=== PATIENT | male | born 1945 | race Hispanic/Latino ===

== ENCOUNTER 2017-11-19 12:09 | Inpatient (IN) | payer MEDICARE ==
[~2017-11-19] VITALS: Ht 172.7 cm; Wt 63.0 kg
[2017-11-19] MEDS ORDERED: LOSARTAN POTASS25 MG PO (12:44)
[2017-11-19] MEDS ORDERED: TACROLIMUS1 MG PO (12:44)
[2017-11-19] MEDS ORDERED: GLIPIZIDE5 MG PO (12:44)
[2017-11-19] MEDS ORDERED: CRESTOR10 MG PO (12:44)
[2017-11-19] MEDS ORDERED: CYMBALTA30 MG PO (12:44)
[2017-11-19] MEDS ORDERED: JANUVIA100 MG PO (12:44)
[2017-11-19] MEDS ORDERED: FAMOTIDINE20 MG PO (12:44)
[2017-11-19] MEDS ORDERED: MYCOPHENOLIC PO (12:44)
[2017-11-19] MEDS ORDERED: ACETAMINOPHEN 325 MG TAB PO STA (12:45)
[2017-11-19] MEDS ORDERED: SODIUM CHLORIDE 0.9% 1000ML 1,000 ML IV STA (12:45)
--- NOTE | 2017-11-19 13:38 | Diagnostic Imaging Report ---
ADDENDUM #1 Dose modulation, iterative reconstruction, and/or weight based adjustment of the mA/kV was utilized to reduce the radiation dose to as low as reasonably achievable. Signed by: Dr. Mercy Carias M.D. on 11/26/2017 10:00 AM ORIGINAL REPORT EXAMINATION: Head CT without contrast HISTORY: Headache, dizziness, evaluate for intracranial bleed or tumor. COMPARISON: None. TECHNIQUE: Multidetector axial images were obtained without contrast from the foramen magnum to the vertex . The images were reconstructed using brain and bone algorithms. Thin section brain images were reformatted into coronal and sagittal planes. Image quality: Motion/streaking artifact limits the evaluation of the skull base and posterior cranial fossa. FINDINGS: Parenchyma: 1. Moderate confluent periventricular and aragon radiata white matter hypodensities, most likely nonspecific chronic microvascular ischemic changes. 2. Age indeterminate likely chronic lacunar infarcts in the left frontal deep white matter, bilateral lentiform nuclei, bilateral medial thalami and possibly within the shailesh. 3. No mass or hemorrhage. No CT evidence of acute territorial vascular insult. Extra-axial spaces: No abnormal density. No extra-axial fluid collections Brain volume: Mild generalized brain volume loss, psychomotor retrospective for patient's age. Ventricles: No hydrocephalus or displacement. Arteries: No density suggestive of thrombus. Dural sinuses: No abnormal density. Extra-axial spaces: No abnormal density. Foramen magnum: No mass, Chiari malformation, or basilar invagination. Sella: No obvious mass. Paranasal/mastoid sinuses: Imaged portions unremarkable. Skull/Scalp: No lytic or blastic lesions. No fractures. IMPRESSION: 1. No intracranial mass or hemorrhage. 2. Moderate confluent chronic microvascular ischemic changes. 3. Multiple age indeterminate likely chronic small lacunar infarct as detailed above. Signed by: Dr. Mercy Carias M.D. on 11/19/2017 1:35 PM
[2017-11-19 14:30] LABS: BASOPHILS % 0.2 % (0.0-1.0); EOSINOPHILS % 0.2 % (0.0-6.0); HEMATOCRIT 28.6 % (38.2-49.6); HEMOGLOBIN 9.5 g/dL (14.0-18.0); LYMPHOCYTES # (AUTO) 0.3 (1.0-3.2); LYMPHOCYTES % 3.4 % (18.0-39.1); MEAN CORPUSCULAR HEMOGLOBIN 27.8 pg (28-32); MEAN CORPUSCULAR HGB CONC 33.2 g/dL (31-35); MEAN CORPUSCULAR VOLUME 83.6 fL (81-99); MONOCYTES # (AUTO) 0.8 (0.2-0.8); MONOCYTES % 8.8 % (4.4-11.3); NEUTROPHILS # (AUTO) 8.1 (2.1-6.9); NEUTROPHILS % 86.3 % (38.7-80.0); RED BLOOD COUNT 3.42 x10e6/uL (4.3-5.7); RED CELL DISTRIBUTION WIDTH 14.8 % (11.7-14.4)
[2017-11-19 14:31] LABS: PLATELET COUNT 98 x10e3/uL (140-360)
[2017-11-19 14:45] LABS: ALBUMIN 3.2 g/dL (3.5-5.0); ALBUMIN/GLOBULIN RATIO 0.8 (0.8-2.0); ANION GAP 16.4 mmol/L (8-16); CALCIUM 9.8 mg/dL (8.4-10.2); CREATININE, SERUM 2.34 mg/dL (0.72-1.25)
[2017-11-19 14:49] LABS: POTASSIUM 2.4 mmol/L (3.5-5.1)
[2017-11-19 14:52] LABS: CREATINE KINASE MB 1.9 ng/mL (0-5.0)
[2017-11-19] MEDS ORDERED: POTASSIUM CHLORIDE 20 MEQ TAB CR PO STA (14:55)
[2017-11-19 14:57] LABS: BILIRUBIN,URINE NEGATIVE (NEGATIVE); CLARITY,URINE HAZY (CLEAR); COLOR,URINE YELLOW (YELLOW); KETONES,URINE NEGATIVE (NEGATIVE); LEUKOCYTE ESTERASE ,URINE 2+ (NEGATIVE); NITRITE,URINE NEGATIVE (NEGATIVE); PROTEIN,URINE DIPSTICK 2+ (NEGATIVE); URINE UROBILINOGEN 0.2 mg/dL (0.2 - 1)
[2017-11-19] MEDS ORDERED: VANCOMYCIN 1GM/NS 250 ML 250 ML IV ONE (15:00)
[2017-11-19] MEDS ORDERED: LIDOCAINE HCL 1% LOCAL INJ 20 ML VIAL INJ ONE (15:00)
[2017-11-19] MEDS ORDERED: CEFTRIAXONE SOD 1 GM VIAL IV ONE (15:00)
[2017-11-19 15:09] LABS: WBC,URINE (MAN) >50 /HPF (0-5)
[2017-11-19 15:10] LABS: BACTERIA,URINE MODERATE /HPF; MUCUS,URINE FEW (RARE)
[2017-11-19] MEDS ORDERED: ZOLPIDEM TARTRATE 5 MG TAB PO PRN (15:45)
[2017-11-19] MEDS ORDERED: ONDANSETRON HCL INJ 2 MG/ML VIAL IV PRN (15:45)
[2017-11-19] MEDS ORDERED: MORPHINE SULFATE 2 MG/ML SYR IV PRN (15:45)
[2017-11-19] MEDS ORDERED: DIPHENHYDRAMINE HCL 25 MG CAP PO PRN (15:45)
[2017-11-19] MEDS ORDERED: ACETAMINOPHEN 325 MG TAB PO PRN (15:45)
[2017-11-19] MEDS ORDERED: PROMETHAZINE 12.5MG/ NACL 0.9% 12.5 MG/50 ML BAG IV PRN (15:45)
--- NOTE | 2017-11-19 15:48 | Diagnostic Imaging Report ---
PROCEDURE: A single AP view of the chest. COMPARISON: None. INDICATIONS: NECK PAIN FINDINGS: Lines/tubes: None. Lungs: The lungs are well inflated and clear. There is no evidence of pneumonia or pulmonary edema. Pleura: There is no pleural effusion or pneumothorax. Heart and mediastinum: The heart and the mediastinum are unremarkable. Bones: No acute bony abnormality. IMPRESSION: 1. No acute cardiopulmonary disease. Dictated by: Flavio Dove M.D. on 11/19/2017 at 15:54 Electronically approved by: Flavio Dove M.D. on 11/19/2017 at 15:54
[2017-11-19 16:17] LABS: TOTAL PROTEIN,CSF 40.9 mg/dL (15-40)
[2017-11-19 16:45] LABS: APPEARANCE,CSF CLEAR (CLEAR); COLOR,CSF COLORLESS (COLORLESS); TUBE NUMBER 4
[2017-11-19 16:46] LABS: WHITE BLOOD CELL,CSF 1 cells/uL (0-5)
[2017-11-19] MEDS ORDERED: ENOXAPARIN SOD INJ 40 MG/0.4 ML SYR SC SCH (17:00)
[2017-11-19] MEDS: ENOXAPARIN 30 MG/0.3 ML SYR SC SCH (17:00)
[2017-11-19 17:50] VITALS: BP 189/94
[2017-11-19] MEDS ORDERED: DEXTROSE 50% SYRINGE 50 ML IV PRN (19:30)
[2017-11-19 20:00] VITALS: BP 117/63
[2017-11-19 20:30] VITALS: BP 130/72
[2017-11-19] MEDS ORDERED: CEFTRIAXONE SOD 1 GM VIAL IV SCH (21:00)
[2017-11-19] MEDS: FAMOTIDINE 20 MG TAB PO SCH (22:07)
[2017-11-19] MEDS: INSULIN LISPRO 100 UNIT/1 ML 3ML VIAL SQ SCH (22:08)
[2017-11-19] MEDS: SIMVASTATIN 40 MG TAB PO SCH (22:08)
[2017-11-19] MEDS: SODIUM CHLORIDE 0.9% 1000ML 1,000 ML IV SCH (22:16)
[2017-11-19 23:05] VITALS: BP 140/72
[2017-11-20] VITALS (7 sets, daily range): BP systolic 117–177; BP diastolic 61–87
[2017-11-20 06:02] LABS: BASOPHILS % 0.3 % (0.0-1.0); EOSINOPHILS % 0.6 % (0.0-6.0); HEMATOCRIT 26.5 % (38.2-49.6); HEMOGLOBIN 8.9 g/dL (14.0-18.0); LYMPHOCYTES # (AUTO) 0.4 (1.0-3.2); LYMPHOCYTES % 5.7 % (18.0-39.1); MEAN CORPUSCULAR HGB CONC 33.6 g/dL (31-35); MEAN CORPUSCULAR VOLUME 83.3 fL (81-99); MONOCYTES # (AUTO) 0.7 (0.2-0.8); MONOCYTES % 10.5 % (4.4-11.3); NEUTROPHILS # (AUTO) 5.8 (2.1-6.9); NEUTROPHILS % 82.2 % (38.7-80.0); PLATELET COUNT 90 x10e3/uL (140-360); RED BLOOD COUNT 3.18 x10e6/uL (4.3-5.7); RED CELL DISTRIBUTION WIDTH 14.8 % (11.7-14.4)
[2017-11-20 06:28] LABS: ANION GAP 13.3 mmol/L (8-16); CREATININE, SERUM 2.07 mg/dL (0.72-1.25)
[2017-11-20 06:36] LABS: POTASSIUM 2.3 mmol/L (3.5-5.1)
[2017-11-20] MEDS ORDERED: POTASSIUM CHLORIDE 20MEQ/100ML 100 ML IV ONE ×3 (07:30→15:00)
[2017-11-20] MEDS ORDERED: SODIUM CHLORIDE 0.9% 50ML 50 ML ONE (07:54)
[2017-11-20] MEDS: SODIUM CHLORIDE 0.9% 1000ML 1,000 ML IV SCH (08:32)
[2017-11-20] MEDS: FAMOTIDINE 20 MG TAB PO SCH ×2 (08:32→16:17)
[2017-11-20] MEDS: INSULIN LISPRO 100 UNIT/1 ML 3ML VIAL SQ SCH ×4 (08:33→21:11)
[2017-11-20] MEDS: DULOXETINE HCL 30 MG DELAYED RELEASE PO SCH (08:33)
[2017-11-20] MEDS: LOSARTAN POTASSIUM 25 MG TAB PO SCH (08:33)
[2017-11-20] MEDS: SITAGLIPTIN 100 MG TAB PO SCH (08:33)
[2017-11-20] MEDS: GLIPIZIDE 5 MG TAB PO SCH (08:33)
[2017-11-20] MEDS: TACROLIMUS 1 MG CAP PO SCH (08:33)
[2017-11-20] MEDS ORDERED: FAMOTIDINE 20 MG TAB PO SCH (09:00)
[2017-11-20] MEDS: MYCOPHENOLIC 360 MG PO SCH ×2 (09:00→16:17)
[2017-11-20] MEDS ORDERED: MYCOPHENOLIC 360 MG PO SCH (09:00)
[2017-11-20] MEDS ORDERED: FUROSEMIDE INJ 10 MG/ML 2 ML VIAL IV NR (10:00)
--- NOTE | 2017-11-20 10:45 | Consultation ---
DATE OF CONSULTATION: November 20, 2017 RENAL CONSULTATION Thank you for the consultation Mr. Zhou is a pleasant well known 72-year-old male patient of mine with past medical history significant for end-stage renal disease. He is status post cadaveric renal transplant back in January of 2014 in [place]. He moved over the last year or so to [place] to establish care to follow his kidney transplant, which has been stable with his creatinine around 2.07 or 2.1 mg/dL. The patient has been followed in our office. He has also seen Dr. Thao at the [facility] transplant clinic. His cadaveric renal transplant has been stable. The patient has also maintained Prograf levels with the level being 10 on the lower side now since he is stable with his transplant. He is currently on 2 mg daily of Prograf and also mycophenolic acid. Currently, no fever, chills, nausea, vomiting, or diarrhea. Came in yesterday with some altered mental status. Was admitted to evaluate for infection. Also, is hypokalemic. Has been given IV potassium and oral potassium will be given this evening. He received IV fluids overnight, but appears on the fluid positive side now. No chest pain. No difficulty breathing at this time. PAST MEDICAL HISTORY: Cadaveric renal transplant, history of hypertension, history of diabetes mellitus, history of end-stage renal disease. He is status post cadaveric renal transplant back in 2013. ALLERGIES: NO KNOWN DRUG ALLERGIES. SOCIAL HISTORY: No tobacco. No alcohol use. FAMILY HISTORY: Noncontributory. REVIEW OF SYSTEMS: As per HPI. Otherwise, all systems negative. MEDICATIONS: That he takes: 1. Losartan 50 mg daily. 2. He is on simvastatin. 3. He is on Januvia. 4. He is on tacrolimus 2 mg daily. 5. He is on mycophenolic acid 360 mg twice a day. 6. He is currently also getting Rocephin. PHYSICAL EXAMINATION VITAL SIGNS: Blood pressure 133/66, pulse 63, afebrile. HEENT: No cervical lymphadenopathy. NECK: Supple without masses. No obvious JVD. Moist appearing oral mucosa. SKIN: Moist with good skin turgor. CHEST: Good expansion. No chest wall tenderness. Lungs are clear to auscultation bilaterally with basal crackles. CARDIOVASCULAR: S1 and S2. No obvious gallop or murmur. ABDOMEN: Soft. Positive bowel sounds. Nontender. No organomegaly. No tenderness over his allograft. EXTREMITIES: No obvious lower extremity edema. No clubbing. No cyanosis. NEUROLOGIC: Awake, alert and oriented times 3. Grossly nonfocal exam. LABORATORY WORKUP: So far, sodium is 132, potassium 2.3, chloride 98, carb 23, BUN 25, creatinine 2.07. Calcium is 9. The patient also had a CBC done with 7 white cell count, 8.9 hemoglobin, hematocrit 26.5, and platelet count is 90,000. IMPRESSION AND PLAN 1. Stable chronic kidney disease, stage 3: Status post cadaveric renal transplant. Stable allograft function. Continue current doses of both tacrolimus and mycophenolic acid. Will check a tacrolimus level in the morning, and make further recommendations. The patient appears slightly on the fluid overload side. Will discontinue the IV fluids. Will repeat labs in the morning, including basic metabolic panel, mag, phos, CBC, as well as tacrolimus level. Will also decrease the Rocephin dose to 1 g IV q.12 h. based on his creatinine clearance. 2. Hypertension: Continue current medications. 3. Hypokalemia: Replace with 60 mEq intravenously and 40 mg is also going to be given later today. Recheck level in the morning, and also check a magnesium level. Will continue to replace as necessary. 4. Hyponatremia: Feel secondary to positive fluid balance. Discontinue maintenance intravenous fluids. Will give one dose of Lasix also, 20 mg times one. 5. Altered mental status: The patient's overall mental status is much better. Infectious disease will be seeing the patient to evaluate for possibility of infection. Thank you once again for the consult. Will follow up the patient closely with you and make further recommendations. Job#: [id number] RI cc:JACOB GANNON MD
--- NOTE | 2017-11-20 15:35 | Diagnostic Imaging Report ---
EXAMINATION: MRI of the cervical spine without contrast HISTORY: Neck and head pain for the last 3 days, meningitis, renal failure, frequent falls COMPARISON: None available TECHNIQUE: Sagittal T1, T2, STIR; axial T2, gradient echo. Image quality: Motion artifact limits evaluation of most of the sequences. FINDINGS: Curvature: Mild alignment of the spino-laminar line at C6-C7 with minimal interspinous processes subluxation and buckling of the ligamenta flava, correlate clinically with possible recent trauma. Spinal canal: Questionable dorsal epidural heterogeneous signal intensity which may correspond to artifact versus organizing fluid collection at C5-C6, best seen on the sagittal T2, motion artifact limits evaluation in the remaining sequences. Vertebrae: No evidence of neoplasm, infection, or fracture. Chronic endplate degenerative changes from C5 to C7. Foramen magnum: No mass, Chiari malformation, or basilar invagination. Spinal Cord: -Increased T2 signal intensity within the thoracic spinal cord from the superior endplate of C7 to the superior endplate of T2. Additional multiple dilated likely coronary venous plexus draining veins along the ventral and dorsal aspect of the cord, the findings are worrisome for a dural fistula with possible associated spinal cord edema/ischemia related to venous hypertension. -Focal GRE hypointense foci within the left side and dorsal aspect of the spinal cord at C6-C7 may correspond to microhemorrhages, again correlate for recent trauma versus related to venous hypertension. Soft Tissues: Small amount of fluid/effusion in the prevertebral space, which may correspond to a small early organizing fluid collection versus related to renal failure with anasarca. Edema along the interspinous ligament from C3 down to C7 and to a lesser extent the posterior paraspinal muscles. Degenerative changes: C1-C2: Joint effusion on the bilateral articular space between the lateral masses of C1 and C2, no significant associated also with changes. C2-C3: Minimal disc bulge, uncovertebral and facet arthrosis. No significant stenoses C3-C4: Minimal disc bulge, uncovertebral and facet retrolisthesis. No significant stenoses. C4-C5: Disc osteophyte complex formation, uncovertebral and facet arthrosis. No significant stenoses C5-C6: Disc osteophyte complex formation, bilateral uncovertebral and facet arthrosis. Probable moderate spinal canal stenoses and [id number] foraminal narrowing. C6-C7: Disc osteophyte complex formation asymmetric to the left, uncovertebral and facet arthrosis. Severe spinal canal and probable [id number] foraminal stenoses. C7-T1: Unremarkable. IMPRESSION: Suboptimal study due to motion artifact which greatly limits the evaluation, consider repeat study with adequate sedation. 1. Increased T2 signal of the cord from C7 to T2 and dilatation of the superficial veins, worrisome for dural AV fistula. To confirm the diagnoses a conventional spine angiogram is required. 2. Small GRE hypointense foci within the cord at the level of the C6-C7 and associated dorsal C6-C7 interspinous subluxation as well as paraspinal muscles swelling, which suggests the possibility of posttraumatic injury with spinal cord contusion in the setting of frequent falls. A cervical spine CT is recommended. A neurosurgery consultation is advised 3. Nonspecific small amount of fluid in the prevertebral space and C1-C2 articular space, which may be related to patient's renal failure versus early organizing fluid collections. 4. Questionable abnormal signal within the dorsal epidural spinal canal at C5-C6, which may represent an artifact, less likely organizing fluid collection, again motion artifact limits the evaluation. 5. Severe spinal canal stenosis at C6-C7 due to degenerative changes and dorsal interspinous subluxation. The findings were discussed with attending physician Dr. Mccurdy on 11/20/2017 at 3:20 PM. Signed by: Dr. Mercy Carias M.D. on 11/20/2017 3:32 PM
--- NOTE | 2017-11-20 15:41 | Consultation ---
DATE OF CONSULTATION: November 20, 2017 INFECTIOUS DISEASE CONSULTATION REASON FOR CONSULTATION: Recommendation of antibiotic. HISTORY OF PRESENT ILLNESS: This is a 72-year-old gentleman who has history of end-stage disease. He underwent a renal transplant in January 2014 in [place]. The patient moved to [place]. Since then he has been doing well. He is followed by Dr. Montes. He is coming here because for the last 4 days he has been having neck pain. The patient denies any fever, any chills. He is on Prograf at the present time, his level being around 10. The patient is also on mycophenolate acid. The patient started to have pain in his neck going to his scalp. He denies any fever or chills. He denies any nausea, vomiting or diarrhea. He denies any confusion at the present time. The patient is currently lying in bed comfortably. PAST MEDICAL HISTORY: As above. End-stage renal disease, status post a transplant. ALLERGIES: NKA. SOCIAL HISTORY: There is no smoking, drug abuse, alcohol abuse. FAMILY HISTORY: Hypertension. REVIEW OF SYSTEMS: At present time, HEENT: There is headache. No visual changes, hearing changes. GI: There is nausea, no vomiting, no diarrhea. CARDIAC: There is no arrhythmia. NEURO: No seizure activity. SKIN: There is no rash. ALL SYSTEMS: Are otherwise within normal limits. LABORATORY DATA: Blood cultures no growth in 24 hours. His white count on admission 9.4, today 7.06. Hemoglobin 8.9. Hematocrit 26. Sodium 132, potassium 2.3. Spinal fluid, his glucose was 89, protein of 40, WBC of 1. PHYSICAL EXAMINATION: GENERAL: He is currently alert, oriented, does not seem to be in acute distress. VITALS: Stable, currently afebrile. HEENT: He does not appear icteric. NECK: Supple. He did have pain in the spine. CHEST: Clear bilaterally. HEART: S1, S2. No S3, no S4. No murmur. ABDOMEN: Soft. IMPRESSION: Back pain, neck pain. Patient is immunocompromised. Concerned about infection versus other. Agree with MRI of the cervical spine. Agree with blood cultures. He received a dose of vancomycin. Will follow with you. Job#: [id number] EV
[2017-11-20] MEDS ORDERED: HYDRALAZINE HCL 20 MG/ML VIAL IV PRN (16:00)
[2017-11-20] MEDS: CEFTRIAXONE SOD 1 GM VIAL IV SCH (16:17)
[2017-11-20] MEDS: ENOXAPARIN 30 MG/0.3 ML SYR SC SCH (16:17)
[2017-11-20] MEDS ORDERED: CEFTRIAXONE SOD 1 GM VIAL IV SCH (17:30)
[2017-11-20] MEDS ORDERED: POTASSIUM CHLORIDE 20MEQ/15ML UDC PO NR (18:00)
[2017-11-20] MEDS: SIMVASTATIN 40 MG TAB PO SCH (21:08)
[2017-11-21] VITALS (8 sets, daily range): BP systolic 131–152; BP diastolic 60–85
[2017-11-21 05:21] LABS: BASOPHILS % 0.2 % (0.0-1.0); EOSINOPHILS # (AUTO) 0.1 (0.0-0.4); HEMATOCRIT 26.5 % (38.2-49.6); HEMOGLOBIN 8.8 g/dL (14.0-18.0); LYMPHOCYTES # (AUTO) 0.4 (1.0-3.2); LYMPHOCYTES % 7.3 % (18.0-39.1); MEAN CORPUSCULAR HEMOGLOBIN 28.1 pg (28-32); MEAN CORPUSCULAR HGB CONC 33.2 g/dL (31-35); MEAN CORPUSCULAR VOLUME 84.7 fL (81-99); MONOCYTES # (AUTO) 0.6 (0.2-0.8); MONOCYTES % 9.9 % (4.4-11.3); NEUTROPHILS # (AUTO) 4.9 (2.1-6.9); NEUTROPHILS % 80.6 % (38.7-80.0); PLATELET COUNT 95 x10e3/uL (140-360); RED BLOOD COUNT 3.13 x10e6/uL (4.3-5.7); RED CELL DISTRIBUTION WIDTH 15.2 % (11.7-14.4)
[2017-11-21 05:47] LABS: CALCIUM 9.2 mg/dL (8.4-10.2); CREATININE, SERUM 2.08 mg/dL (0.72-1.25)
[2017-11-21 05:57] LABS: MAGNESIUM 1.3 MG/DL (1.3-2.1)
[2017-11-21] MEDS: CEFTRIAXONE SOD 1 GM VIAL IV SCH ×2 (06:11→17:46)
[2017-11-21] MEDS: INSULIN LISPRO 100 UNIT/1 ML 3ML VIAL SQ SCH ×4 (07:30→22:07)
[2017-11-21] MEDS: DULOXETINE HCL 30 MG DELAYED RELEASE PO SCH (08:50)
[2017-11-21] MEDS: FAMOTIDINE 20 MG TAB PO SCH ×2 (08:50→17:09)
[2017-11-21] MEDS: TACROLIMUS 1 MG CAP PO SCH (08:50)
[2017-11-21] MEDS: MYCOPHENOLIC 360 MG PO SCH ×2 (08:50→17:00)
[2017-11-21] MEDS: LOSARTAN POTASSIUM 25 MG TAB PO SCH (08:50)
[2017-11-21] MEDS: SITAGLIPTIN 100 MG TAB PO SCH (08:50)
[2017-11-21] MEDS: GLIPIZIDE 5 MG TAB PO SCH (08:50)
[2017-11-21 09:17] LABS: INR 1.16; PROTHROMBIN TIME 13.9 seconds (11.9-14.5)
[2017-11-21] MEDS ORDERED: IOPAMIDOL 300 MG/ML 15ML VIAL IT ONE (09:28)
[2017-11-21] MEDS ORDERED: MIDAZOLAM HCL 2 MG/2 ML VIAL ONE (09:33)
[2017-11-21] MEDS ORDERED: FENTANYL CITRATE/PF 100MCG/2 ML INJ ONE (09:33)
--- NOTE | 2017-11-21 12:41 | Diagnostic Imaging Report ---
This report includes an Addendum and supersedes previous reports for this exam. PROCEDURE:CT GUIDED NEEDLE PLACEMENT COMPARISON:None. INDICATIONS:MYELOGRAM FINDINGS: Written and verbal consent were obtained. Patient was placed in prone position. Preliminary CT demonstrated a safe path via a left interlaminar approach into the L5-S1 subarachnoid space. The overlying skin was prepped and draped in usual sterile fashion. Lidocaine 1% was used for local pain control. Subsequently a 22 gauge x 3.5 inch needle was advanced into the left L5-S1 subarachnoid space with CT guidance. Clear CSF fluid was present. Subsequently, 10 cc of Isovue 300-M fluid was injected into the CSF space with CT guidance demonstrating intrathecal lumbar opacification. The needle was removed and sterile bandage placed. The patient tolerated the procedure well, and there were no immediate post-procedural complications. CONCLUSION: CT guided L5-S1 lumbar puncture via left interlaminar approach with contrast injection for CT cervical myelogram. Plan to position the patient in Trendelenburg position for 20 minutes to help distribute the contrast into the cervical space. Dictated by: LISA HUTTON M.D. on 11/21/2017 at 12:47 Electronically approved by: LISA HUTTON M.D. on 11/21/2017 at 12:47 ADDENDUM: Of note, after a total of 40 minutes of Trendelenburg position, significant contrast did not distribute above the thoracic level into the cervical spine on CT. This raises the possibility of scarring or spinal stenosis preventing contrast from distributing. Findings were discussed with Dr. Chang on 11/21/17 at 1:20 PM. Dictated by: LISA HUTTON M.D. on 11/21/2017 at 13:34 Electronically approved by: LISA HUTTON M.D. on 11/21/2017 at 13:34
[2017-11-21] MEDS ORDERED: DORZOLAMIDE-TIM10 ML OP (12:42)
[2017-11-21] MEDS ORDERED: TRAVATAN Z5 ML OP (12:43)
[2017-11-21] MEDS ORDERED: BRIMONIDINE TART5 ML OP (12:44)
[2017-11-21] MEDS: BRIMONIDINE TARTRATE (OPTH) 5 ML LIQD OP SCH ×2 (14:30→22:07)
[2017-11-21] MEDS ORDERED: MAGNESIUM SULFATE 2GM/50ML 50 ML IV ONE (14:30)
[2017-11-21] MEDS ORDERED: POTASSIUM PHOSPHATE 20 MM in SODIUM CHLORIDE 0.9% 250ML 250 ML IV ONE ×2 (14:45→17:00)
--- NOTE | 2017-11-21 14:45 | Progress Note ---
DATE: November 21, 2017 RENAL PROGRESS NOTE Followed for chronic kidney disease, stage 3. Cadaveric renal transplant, stable kidney transplant. Tacrolimus level pending. No nausea, no vomiting, no shortness of breath. OBJECTIVE VITAL SIGNS: Have been noted and are stable, 140/67 blood pressure, 80 pulse. LUNGS: Clear to auscultation bilaterally. CARDIOVASCULAR: S1 and S2. No rub. ABDOMEN: Soft. Nontender. EXTREMITIES: No edema. LABS: Potassium 3.0, creatinine 2.1, phosphorus 2.0, calcium 9.2, magnesium 1.3. IMPRESSION AND PLAN 1. Chronic kidney disease, stage 3, stable. 2. Hypertension, stable. 3. Hypokalemia, replaced. 4. Hypophosphatemia. Will give K-Phos 20 mmol IV. 5. Hypomagnesemia. Will give 2 grams magnesium sulfate. Job#: [id number]
[2017-11-21] MEDS: DORZOLAMIDE/TIMOLOL (OPTH SOL) 10 ML DRPETTE OP SCH (17:09)
[2017-11-21] MEDS: DEXAMETHASONE SOD PHOS INJ 4 MG/ML VIAL IV SCH (17:46)
[2017-11-21] MEDS: TRAVOPROST(OPTH) 2.5 ML BTL OP SCH (22:06)
[2017-11-21] MEDS: SIMVASTATIN 40 MG TAB PO SCH (22:06)
[2017-11-22] VITALS (8 sets, daily range): BP systolic 118–153; BP diastolic 58–82
[2017-11-22] MEDS: DEXAMETHASONE SOD PHOS INJ 4 MG/ML VIAL IV SCH ×4 (00:22→17:47)
[2017-11-22] MEDS: BRIMONIDINE TARTRATE (OPTH) 5 ML LIQD OP SCH ×3 (06:10→21:11)
[2017-11-22] MEDS: CEFTRIAXONE SOD 1 GM VIAL IV SCH ×2 (06:10→17:47)
[2017-11-22 06:25] LABS: ANION GAP 13.3 mmol/L (8-16); CALCIUM 9.6 mg/dL (8.4-10.2); CREATININE, SERUM 1.89 mg/dL (0.72-1.25); MAGNESIUM 1.4 MG/DL (1.3-2.1); PHOSPHORUS 3.5 MG/DL (2.3-4.7); POTASSIUM 3.3 mmol/L (3.5-5.1)
[2017-11-22] MEDS ORDERED: BACITRACIN 50,000 UNIT VIAL ONE (06:50)
[2017-11-22] MEDS ORDERED: THROMBIN FOR SOLN 5,000 UNIT VIAL ONE (06:50)
[2017-11-22] MEDS ORDERED: BUPIVACAINE 0.5%/EPI 30 ML SDV INJ ONE (06:50)
[2017-11-22] MEDS ORDERED: ACETAMINOPHEN 1000 MG/100 ML 100 ML IV ONE (07:04)
[2017-11-22] MEDS: FAMOTIDINE 20 MG TAB PO SCH ×2 (07:30→17:47)
[2017-11-22] MEDS: INSULIN LISPRO 100 UNIT/1 ML 3ML VIAL SQ SCH ×4 (07:30→21:10)
[2017-11-22] MEDS: MYCOPHENOLIC 360 MG PO SCH ×2 (09:00→17:00)
[2017-11-22] MEDS: DORZOLAMIDE/TIMOLOL (OPTH SOL) 10 ML DRPETTE OP SCH ×2 (09:05→17:47)
[2017-11-22] MEDS ORDERED: POTASSIUM CHLORIDE 20 MEQ TAB CR PO NR ×2 (11:00→17:30)
[2017-11-22] MEDS ORDERED: MAGNESIUM SULFATE 2GM/50ML 50 ML IV ONE (11:00)
--- NOTE | 2017-11-22 11:28 | Progress Note ---
DATE: November 22, 2017 RENAL PROGRESS NOTE SUBJECTIVE: Followed for chronic kidney disease, stage 3, stable cadaveric renal transplant, and stable kidney function. Creatinine 1.9 today. No nausea, no vomiting, and no shortness of breath. OBJECTIVE VITAL SIGNS: Stable, 152/82 blood pressure, 72 heart rate, and 20 respiration. LUNGS: Clear to auscultation bilaterally. CARDIOVASCULAR: S1 and S2. No rub. ABDOMEN: Soft and nontender. EXTREMITIES: No edema. LABS: Potassium 3.5, sodium 135, and creatinine 1.9. IMPRESSION AND PLAN 1. Chronic kidney disease, stage 3, stable. Continue Tacrolimus and CellCept as ordered. Tacrolimus level is still pending. 2. Hypertension. Continue current losartan dose. 3. Anemia of chronic disease is stable. Continue to monitor closely. 4. Hypokalemia, will replace. 5. Hypomagnesemia. Will replace with IV magnesium sulfate. Job#: [id number] DKA
--- NOTE | 2017-11-22 12:42 | Diagnostic Imaging Report ---
ADDENDUM #1 Dose modulation, iterative reconstruction, and/or weight based adjustment of the mA/kV was utilized to reduce the radiation dose to as low as reasonably achievable. Signed by: Dr. Mercy Carias M.D. on 11/26/2017 10:06 AM ORIGINAL REPORT EXAMINATION: CT Myelogram of the cervical spine HISTORY: Evaluate for cord compression. Neck and head pain, meningitis, renal failure, frequent falls, abnormal cervical spine MRI and 11/20/2017. COMPARISON: Cervical spine MRI and 11/20/2017. TECHNIQUE: Multidetector helical axial images were obtained from the foramen magnum to T1 following myelography . The images were reconstructed using bone and soft tissue algorithms and were viewed in axial, sagittal and coronal planes. For details of the injection procedure, see the report of the myelogram. Intrathecal contrast: Please see dictation of cervical spine myelogram procedure for full detail to include the intrathecal injection of 10 mL of Isovue-300. FINDINGS: Curvature:Mild reversal of the cervical lordosis centered at C5-C6. Mild left-sided curvature. Vertebrae:No evidence of neoplasm, infection, or fracture. Chronic endplate degenerative changes from C5 to C7. Partial ossification of the posterior longitudinal ligament on the posterior aspect from C2 to C6, contributing to canal narrowing. Soft tissues: Grossly unchanged minimal prevertebral fluid. Spinal cord: Cannot be evaluated as not intrathecal contrast reached the cervical spine segment, radiopaque intrathecal contrast is visualized in the upper thoracic spinal canal up to the level of T1-T2. Degenerative changes: C1-C2: Unremarkable. C2-C3: Prominent facet arthrosis mainly on the right without stenoses C3-C4: Mild symmetric disc bulge, no significant canal or foraminal stenoses. C4-C5: Mild posterior disc portable chest without significant stenoses. C5-C6: Disc osteophyte complex formation, bilateral uncovertebral and facet hypertrophy. Mild canal and foraminal narrowing. C6-C7: Disc osteophyte complex formation, bilateral uncovertebral and facet arthrosis. Mild/moderate spinal canal stenosis. Moderately severe left foraminal stenosis. Again noted age indeterminate interspinous malalignment. C7-T1: Unremarkable. IMPRESSION: 1. No acute cervical spine fractures. 2. The cervical spinal cord cannot adequately be evaluated due to inability to distribute intrathecal contrast of the cervical spine segment. Lower cervical spinal cord edema and dilated superficial veins are better visualized on prior cervical spine MRI from 11/20/2017. 3. Again seen moderate degenerative spinal canal and left foraminal stenoses at C6-7 as well as interspinous malalignment. Signed by: Dr. Mercy Carias M.D. on 11/22/2017 12:38 PM
--- NOTE | 2017-11-22 12:54 | Progress Note ---
DATE: November 21, 2017 SUBJECTIVE: This patient who is doing well now. No new complaints. He had a CT-guided L5-S1 lumbar puncture. The patient is currently lying in bed comfortably. The patient who is 72-year-old with renal transplant, recently moved to [place], comes in with severe back pain and neck pain. No fever. No chills. An MRI was done that showed degenerative joint disease, severe. PHYSICAL EXAMINATION GENERAL: She is currently alert, oriented, does not seem to be in acute distress. VITAL SIGNS: Stable. Currently afebrile. HEENT: He does not appear icteric. NECK: Supple. CHEST: Clear. HEART: S1 and S2. No murmur. ABDOMEN: Soft. LABORATORY STUDIES: Blood cultures are negative. Urine culture showed strep group B 10 to 50,000. IMPRESSION: Neck pain in the patient who have chronic kidney disease status post renal transplant, hypertension. Consider neurosurgery evaluation. Stable otherwise. Job#: [id number] VAS
[2017-11-22] MEDS ORDERED: INSULIN REGULAR, HUMAN 100 UNIT/1 ML 3ML VIAL SQ ONE (12:55)
[2017-11-22] MEDS ORDERED: GELATIN SPONGE SZ 100 ONE (12:55)
[2017-11-22] MEDS ORDERED: ROCURONIUM BROMIDE 10 MG/ML 5ML VIAL ONE (13:35)
[2017-11-22] MEDS ORDERED: PROPOFOL IV EMULSION 10 MG/ML 20 ML VIAL ONE (13:35)
[2017-11-22] MEDS ORDERED: LIDOCAINE HCL 2% LOCAL INJ 5 ML SDV VIAL INJ ONE (13:35)
[2017-11-22] MEDS ORDERED: ONDANSETRON HCL INJ 2 MG/ML VIAL ONE (13:35)
[2017-11-22] MEDS ORDERED: GLYCOPYRROLATE INJ 1MG/ 5 ML SYR ONE (13:35)
[2017-11-22] MEDS ORDERED: SEVOFLURANE INHAL SOLN 250 ML PEN BTL ONE (13:35)
[2017-11-22] MEDS ORDERED: NEOSTIGMINE 5 MG/5ML SYR ONE (13:35)
[2017-11-22] MEDS ORDERED: DEXAMETHASONE SOD PHOS INJ 4 MG/ML VIAL ONE (13:35)
[2017-11-22] MEDS ORDERED: FENTANYL CITRATE/PF 100MCG/2 ML INJ ONE (14:22)
[2017-11-22] MEDS ORDERED: HYDROMORPHONE 2MG/ML 2 MG/ML ML IV PRN (15:30)
[2017-11-22] MEDS ORDERED: MORPHINE SULFATE 5 MG/ML VIAL IM PRN (15:30)
[2017-11-22] MEDS ORDERED: ZOLPIDEM TARTRATE 5 MG TAB PO PRN (15:30)
[2017-11-22] MEDS ORDERED: MAGNESIUM/ALUMINUM/SIMETHICONE 30 ML UDC PO PRN (15:30)
[2017-11-22] MEDS ORDERED: ONDANSETRON HCL INJ 2 MG/ML VIAL IV PRN (15:30)
[2017-11-22] MEDS ORDERED: OXYCODONE/ACETAMINOPHEN 5-325 1 EACH TABLET PO PRN (15:30)
[2017-11-22] MEDS ORDERED: CARISOPRODOL 350 MG TAB PO PRN (15:30)
[2017-11-22] MEDS ORDERED: ACETAMINOPHEN 325 MG TAB PO PRN (15:30)
[2017-11-22] MEDS ORDERED: PROMETHAZINE HCL (IM) 25 MG/ML VIAL IM PRN (15:30)
[2017-11-22] MEDS: LACTATED RINGER'S 1,000 ML IV SCH ×2 (16:43→23:43)
[2017-11-22] MEDS: GLIPIZIDE 5 MG TAB PO SCH (17:47)
[2017-11-22] MEDS: LOSARTAN POTASSIUM 25 MG TAB PO SCH (17:47)
[2017-11-22] MEDS: TACROLIMUS 1 MG CAP PO SCH (17:47)
[2017-11-22] MEDS: SITAGLIPTIN 100 MG TAB PO SCH (17:47)
[2017-11-22] MEDS: DULOXETINE HCL 30 MG DELAYED RELEASE PO SCH (17:47)
--- NOTE | 2017-11-22 17:56 | Operative Report ---
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 PROCEDURES: 1. C5-6 anterior cervical diskectomy and microsurgical osteophyte resection and allograft fusion, 50664. 2. C6-7 anterior cervical diskectomy and microsurgical osteophyte resection and allograft fusion, [id number]. 3. Preparation of tricortical iliac crest allograft, [id number]. 4. C5-6 and C6-7 anterior cervical plating with Synthes CSLP plate, [id number]. ANESTHESIA: General. INDICATIONS: The patient is a 72-year-old man who presents with cervical myelopathy syndrome with increased T2 signal within the cord due to severe spinal stenosis at C5-6 and C6-7. He was taken to the operating room for a 2-level anterior cervical decompression and fusion. PROCEDURE: After the induction of general anesthesia, the patient was placed on the operating table in the supine position. The right side of the neck was prepped and draped in sterile fashion. The fluoroscopic C-arm was positioned in cross-table lateral orientation. A transverse incision was created on the right side of the neck superimposed on the C6 vertebral body as determined by fluoroscopy. The platysma was divided in line with the incision. A subplatysmal dissection was carried out. An avascular plane of dissection was developed medial to the sternocleidomastoid muscle. It was followed medial to the carotid sheath to the anterior border of the cervical spine. The deep cervical fascia was opened. The esophagus was retracted to the left. The attachments of longus coli muscles to the anterolateral aspects of vertebral bodies of C5 and C6 were divided. The anterior longitudinal ligament was resected. Brighton posts were inserted into C5 and C6, and the Brighton distractor was used to distract the disk spaces simultaneously. The anterior annuli of the disks were incised with a number 11 blade, and the contents of both disks were thoroughly evacuated with angled curets and pituitary rongeurs. The posterior osteophytes were meticulously drilled with a 2 mm cutting bur on a high-speed drill until they were completely removed at C5-6. A central osteophyte bar and ossification of posterior longitudinal ligaments have bridged the posterior margins of C5 and C6. This was first drilled on either side, and then drilled superiorly and inferiorly until it was mobilized. Then, as the posterior longitudinal ligament and posterior annulus of the disk were resected, the osteophyte bar was isolated on either side and then elevated with a microhook and peeled off the dura and removed, achieving excellent decompression of the dura. A similar decompression was carried out at C6-7. The medial aspects of the uncinate processes were resected on both sides at both levels to expose any compression origins of the corresponding nerve roots. After satisfactory decompression had been achieved, the endplates were prepared for fusion. Two pieces of tricortical iliac crest allograft were cut to the sizes and shapes of the disk spaces and were inserted into the disk spaces under distraction of fluoroscopic guidance. The distraction was released, and the distraction posts were removed. A Synthes CSLP variable type anterior cervical plate was selected and was affixed to vertebral bodies of C5, C6 and C7 with 3 pairs of 16 x 4.35 mm screws. All screw holes were drilled and tapped under lateral fluoroscopic guidance. All screws were locked with the appropriate locking screws. An excellent construct was obtained. The wound was copiously irrigated with Bacitracin solution. Meticulous hemostasis was secured. The retractor was removed. The platysma was closed with 3-0 Vicryl sutures. The skin was closed with 4-0 Monocryl sutures in subcuticular fashion. Steri-Strips and a dry dressing were applied. The patient was awakened, extubated, and taken to the postanesthesia care unit in stable condition. No intraoperative complications were encountered. Estimated blood loss was 30 mL. Job#: [id number]
[2017-11-22] MEDS: TRAVOPROST(OPTH) 2.5 ML BTL OP SCH (21:06)
[2017-11-22] MEDS: SIMVASTATIN 40 MG TAB PO SCH (21:06)
[2017-11-22] MEDS: CEFAZOLIN SOD 1 GM VIAL IV SCH (21:10)
[2017-11-22] MEDS ORDERED: CEFAZOLIN SOD 1 GM/D5W 50ML 50 ML IV SCH (22:00)
[2017-11-23] VITALS: BP 125/65
[2017-11-23] MEDS: DEXAMETHASONE SOD PHOS INJ 4 MG/ML VIAL IV SCH ×4 (00:12→17:59)
[2017-11-23 04:00] VITALS: BP 149/77
--- NOTE | 2017-11-23 06:06 | Diagnostic Imaging Report ---
C-SPINE 2 VIEWS AP LATERAL HISTORY: Postsurgical neck pain COMPARISON: CT of the cervical spine on 11/21/2017 FINDINGS: Bones: No displaced fracture. There is anterior cervical fusion from C5 through C7 with anterior fenestrated plate, screws and intervertebral body spacers There is a grade 1 retrolisthesis of the 4 and C5 Joints: Degenerative changes of the C4-5 level Soft tissues: Mild prevertebral soft tissue edema status post surgery IMPRESSION: Status post surgical fusion of C5-C7. C4-5 degenerative disc changes with grade 1 retrolisthesis of C4 on C5. Signed by: Dr. Sacha Liang M.D. on 11/23/2017 6:03 AM
[2017-11-23] MEDS: TACROLIMUS 1 MG CAP PO SCH ×2 (06:07→17:59)
[2017-11-23] MEDS: CEFAZOLIN SOD 1 GM VIAL IV SCH ×2 (06:07→13:18)
[2017-11-23] MEDS: BRIMONIDINE TARTRATE (OPTH) 5 ML LIQD OP SCH ×2 (06:07→14:00)
[2017-11-23] MEDS: CEFTRIAXONE SOD 1 GM VIAL IV SCH ×2 (06:07→17:59)
[2017-11-23 07:37] LABS: ANION GAP 14.5 mmol/L (8-16); CALCIUM 9.9 mg/dL (8.4-10.2); CREATININE, SERUM 1.87 mg/dL (0.72-1.25); MAGNESIUM 1.8 MG/DL (1.3-2.1); PHOSPHORUS 3.7 MG/DL (2.3-4.7); POTASSIUM 3.5 mmol/L (3.5-5.1)
[2017-11-23 08:00] VITALS: BP 144/70
[2017-11-23] MEDS: LACTATED RINGER'S 1,000 ML IV SCH ×2 (08:03→16:23)
[2017-11-23] MEDS: DORZOLAMIDE/TIMOLOL (OPTH SOL) 10 ML DRPETTE OP SCH ×2 (08:41→17:59)
[2017-11-23] MEDS: DULOXETINE HCL 30 MG DELAYED RELEASE PO SCH (08:41)
[2017-11-23] MEDS: FAMOTIDINE 20 MG TAB PO SCH ×2 (08:41→17:58)
[2017-11-23] MEDS: GLIPIZIDE 5 MG TAB PO SCH (08:41)
[2017-11-23] MEDS: LOSARTAN POTASSIUM 25 MG TAB PO SCH (08:41)
[2017-11-23] MEDS: MYCOPHENOLIC 360 MG PO SCH ×2 (08:41→17:00)
[2017-11-23] MEDS: SITAGLIPTIN 100 MG TAB PO SCH (08:42)
[2017-11-23] MEDS: INSULIN LISPRO 100 UNIT/1 ML 3ML VIAL SQ SCH ×3 (08:42→17:59)
[2017-11-23 08:53] VITALS: BP 144/70
--- NOTE | 2017-11-23 09:36 | Progress Note ---
DATE: November 23, 2017 RENAL PROGRESS NOTE SUBJECTIVE: Followed for CKD, stage 3, cadaveric renal transplant, stable kidney function. Creatinine around 1.9 mg/dL today. No nausea. No vomiting. No shortness of breath. Potassium is 3.5. OBJECTIVE VITAL SIGNS: Have been noted and are stable. Blood pressure is 140/70, pulse 68, afebrile. LUNGS: Clear to auscultation bilaterally. CARDIOVASCULAR: S1 and S2. No rub. ABDOMEN: Soft and nontender. EXTREMITIES: No edema. LABS: Potassium 3.5, sodium 133, corrected for glucose. Sodium is actually within range at 135. Creatinine is 1.9. IMPRESSION AND PLAN 1. Chronic kidney disease, stage 3/cadaveric renal transplant: Continue tacrolimus and CellCept. The patient's kidney function is holding steady. His tacrolimus level is pending. 2. Hypertension: Continue current losartan dose. 3. Hyponatremia: Corrected for glucose. Sodium is actually within range. I will continue to monitor. Job#: [id number]
[2017-11-23 12:53] VITALS: BP 156/80
[2017-11-23 15:52] VITALS: BP 157/81
[2017-11-23] MEDS ORDERED: NORCO 7.5-3251 EACH PO (18:21)
== END 2017-11-23 18:47 | disposition home health service (06) | DRG 471 ==
LOC: ER 12:09 → ERHOLD 15:38 → MED/SURG3 17:07
PROVIDERS: ADMIT Family Medicine; ATTEND Family Medicine
PROC: 009U3ZX Drainage of Spinal Canal, Percutaneous Approach, Diagnostic (ICD-10-PCS; 2017-11-19)
PROC: 0RT30ZZ Resection of Cervical Vertebral Disc, Open Approach (ICD-10-PCS; principal; 2017-11-21)
PROC: 0RG20A0 Fusion of 2 or more Cervical Vertebral Joints with Interbody Fusion Device, Anterior Approach, Anterior Column, Open Approach (ICD-10-PCS; 2017-11-21)
PROC: 0QB20ZZ Excision of Right Pelvic Bone, Open Approach (ICD-10-PCS; 2017-11-21)
PROC: 01N10ZZ Release Cervical Nerve, Open Approach (ICD-10-PCS; 2017-11-21)
PROC: 009U3ZX Drainage of Spinal Canal, Percutaneous Approach, Diagnostic (ICD-10-PCS; 2017-11-21)
DX: M47.12 Other spondylosis with myelopathy, cervical region (principal); G93.40 Encephalopathy, unspecified; I12.0 Hypertensive chronic kidney disease with stage 5 chronic kidney disease or end stage renal disease; E87.1 Hypo-osmolality and hyponatremia; Z94.0 Kidney transplant status; I12.9 Hypertensive chronic kidney disease with stage 1 through stage 4 chronic kidney disease, or unspecified chronic kidney disease; E11.22 Type 2 diabetes mellitus with diabetic chronic kidney disease; N18.3 Chronic kidney disease, stage 3 (moderate); Z99.2 Dependence on renal dialysis; E86.0 Dehydration; E78.5 Hyperlipidemia, unspecified; E87.6 Hypokalemia; Z79.899 Other long term (current) drug therapy; E83.39 Other disorders of phosphorus metabolism; E83.42 Hypomagnesemia; D63.8 Anemia in other chronic diseases classified elsewhere
CPT/HCPCS: 36415; 62270; 70450; 71045; 72040; 72126; 72141; 74470; 77003; 77012; 80048; 80053; 80197; 81001; 82550; 82553; 82945; 82948; 83605; 83735; 83880; 84100; 84157; 84484; 85025; 85610; 87040; 87070; 87086; 87205; 88304; 89051; 93005; 96361; 99284; C1713; J0360; J0690; J0696; J1100; J1650; J2001; J2250; J2270; J2405; J3370; J3480; J7030; J7050; J7120; J7507; Q9967